=== PATIENT | female | born 1955 | race Caucasian/White ===

== ENCOUNTER 2020-09-05 12:54 | Outpatient (REF) | payer MEDICARE, SELFPAY ==
[2020-09-09 22:36] LABS: Fecal Fat Qualitative NORMAL (NORMAL)
[2020-09-11 02:03] LABS: Pancreatic Elastase-1 >500 mcg/g
== END 2020-09-05 12:55 | disposition home or self-care (01) ==
LOC: HO.LNP 12:54
PROVIDERS: Visit Provider Internal Medicine Gastroenterology
DX: R19.4 Change in bowel habit (principal)
CPT/HCPCS: 82656; 82705

== ENCOUNTER 2020-09-19 07:35 | Day surgery (SDC) | payer MEDICARE, SELFPAY ==
[2020-09-12 10:26] VITALS: BMI 28.9
--- NOTE | 2020-09-18 08:17 | HO.ANESPROP2 ---
Documented by User: Kaley Joseph 09/18/20 08:17 HPI - Anesthesia Eval Consult details Narrative: 65yo F for Upper Endoscopy and Colonoscopy PMFSH Past Medical History Medical History (Updated 09/12/20 @ 10:23 by Tomasa Zimmer) Back pain Barretts esophagus Elevated cholesterol GERD (gastroesophageal reflux disease) HTN (hypertension) Hx of cancer of lung Hypothyroid Osteoporosis Surgical History Surgical History (Updated 09/12/20 @ 10:23 by Tomasa Zimmer) H/O colonoscopy History of esophagogastroduodenoscopy (EGD) History of lung surgery Hx of cholecystectomy Hx of hysterectomy Hx of thyroidectomy Social History Social History (Updated 09/12/20 @ 10:23 by Tomasa Zimmer) Patient Tobacco Use Status: Former Tobacco user Quit Date: 4 Tobacco use type: Cigarette Years Smoked: 35 Smoked in Last 30 Days: No Use of substances other than those prescribed or required for medical reasons: No Are you DNR?: No Advance Directives: No Advance Directives Information Provided: Yes Meds Allergies Allergy/AdvReac Type Severity Reaction Status Date / Time Sulfa (Sulfonamide Allergy Unknown Itching Verified 09/19/20 08:27 Antibiotics) Home Medications Medication Instructions Recorded Confirmed Last Taken Type amlodipine 5 mg tablet 5 mg PO DAILY 09/12/20 09/12/20 09/19/20 06:30 History levothyroxine 88 mcg tablet 88 mcg PO DAILY 09/12/20 09/12/20 09/19/20 06:30 History losartan 50 mg tablet 50 mg PO DAILY 09/12/20 09/12/20 Unknown History pantoprazole 40 mg tablet,delayed 40 mg PO DAILY 09/12/20 09/12/20 Unknown History release rosuvastatin 40 mg tablet 40 mg PO DAILY 09/12/20 09/12/20 Unknown History Exam Exam Date and Time: September 18, 2020 0817 Height,Weight and Vital Signs: Height 5 ft 2 in Weight 71.668 kg Assessment and Plan Assessment Anesthesia Assessment: Chart Reviewed Documented by User: Yessy Dennis 09/19/20 08:49 PMFSH Past Medical History Medical History (Updated 09/12/20 @ 10:23 by Tomasa Zimmer) Back pain Barretts esophagus Elevated cholesterol GERD (gastroesophageal reflux disease) HTN (hypertension) Hx of cancer of lung Hypothyroid Osteoporosis Surgical History Surgical History (Updated 09/12/20 @ 10:23 by Tomasa Zimmer) H/O colonoscopy History of esophagogastroduodenoscopy (EGD) History of lung surgery Hx of cholecystectomy Hx of hysterectomy Hx of thyroidectomy Social History Social History (Updated 09/12/20 @ 10:23 by Tomasa Zimmer) Patient Tobacco Use Status: Former Tobacco user Quit Date: 4 Tobacco use type: Cigarette Years Smoked: 35 Smoked in Last 30 Days: No Use of substances other than those prescribed or required for medical reasons: No Are you DNR?: No Advance Directives: No Advance Directives Information Provided: Yes Meds Allergies Allergy/AdvReac Type Severity Reaction Status Date / Time Sulfa (Sulfonamide Allergy Unknown Itching Verified 09/19/20 08:27 Antibiotics) Home Medications Medication Instructions Recorded Confirmed Last Taken Type amlodipine 5 mg tablet 5 mg PO DAILY 09/12/20 09/12/20 09/19/20 06:30 History levothyroxine 88 mcg tablet 88 mcg PO DAILY 09/12/20 09/12/20 09/19/20 06:30 History losartan 50 mg tablet 50 mg PO DAILY 09/12/20 09/12/20 Unknown History pantoprazole 40 mg tablet,delayed 40 mg PO DAILY 09/12/20 09/12/20 Unknown History release rosuvastatin 40 mg tablet 40 mg PO DAILY 09/12/20 09/12/20 Unknown History Exam Airway Mallampati Class: II TM Dist: >3cm Neck ROM: Full Denture: Upper
[2020-09-19 08:28] VITALS: BP 131/67; PULSE 75; RESP 16; TEMP 36.6; O2SAT 96; BMI 30.7
[2020-09-19] MEDS: Lactated Ringers 1,000 ML 100 ML IVCONT (08:37)
--- NOTE | 2020-09-19 08:47 | MHC.SHP ---
Pre-Procedural Eval Section A Date of Service: 09/19/20 The patient is an INPATIENT: No Changes since office visit: No Cold of Flu in the past 2 weeks, No New Medical Problems, No Changes in Medication and No Patient answered all questions The History & Physical has been completed within 30 days and I have reviewed it.: Yes Section B Chief Complaint: screening,barretts Allergies: Allergies Allergy/AdvReac Type Severity Reaction Status Date / Time Sulfa (Sulfonamide Allergy Unknown Itching Verified 09/19/20 08:27 Antibiotics) Plan I have reviewed the history and physical and performed a pertinent physical examination on my patient. No changes have occurred unless specified.
[2020-09-19 09:26] VITALS: BP 88/65; PULSE 57; RESP 14; TEMP 36.1; O2SAT 97
--- NOTE | 2020-09-19 09:29 | PM.OP ---
Brief Operative Note Date of Service: 09/19/20 Pre-op diagnosis: barretts, screening, cchange in bowels Post-op diagnosis: same Procedure: EGD/Colon Surgeon: Haile Madison Anesthesia: MAC Was an Post Tensioning Ironworker Helper used for this Procedure?: No Estimated blood loss (mL): 5 Pathology: other (see nurses notes) Condition: stable Disposition: PACU
[2020-09-19 09:42] VITALS: BP 106/58; PULSE 63; RESP 16; TEMP 36.1; O2SAT 96
--- NOTE | 2020-09-19 10:00 | OP_ITS ---
SURGEON: Haile Madison MD INDICATIONS: 1. Soto's esophagus. 2. Change in bowel habits and prior history of adenomatous colon polyps. PREOPERATIVE DIAGNOSIS: POSTOPERATIVE DIAGNOSIS: PROCEDURE PERFORMED: 1. Upper endoscopy with biopsy. 2. Colonoscopy to the terminal ileum with biopsy. ESTIMATED BLOOD LOSS: COMPLICATIONS: ANESTHESIA: ASSISTANTS: SPECIMENS: MEDICATIONS: Monitored anesthesia care. DESCRIPTION OF PROCEDURE: History and physical was performed. The risks and benefits of the procedure were explained to the patient. Informed consent was obtained. The patient was placed in the left lateral decubitus position. The Olympus video gastroscope was introduced into the esophagus, stomach, and duodenum. Examination was performed. The scope was removed, she was repositioned for colonoscopy. A digital rectal exam was performed and was found to be normal. The Olympus pediatric video colonoscope was introduced into the rectum and advanced into the cecum without difficulty. The cecum was identified by transillumination, palpation, and identification of ileocecal valve. Examination was performed and the scope was removed. She tolerated both procedures well and was returned to recovery area in stable condition. FINDINGS: UPPER ENDOSCOPY: Esophagus: The esophagus showed an irregular EG junction without evidence of esophagitis or raised lesions. Biopsies were obtained from the EG junction. Stomach: The stomach showed multiple benign-appearing gastric polyps, most measured less than 10 mm, were located in the fundus and body. Biopsies were obtained from two of these. Antral biopsies were also obtained. Duodenum: The bulb and second portion were normal. Biopsies were obtained to rule out malabsorption because of the patient's change in bowel habits. COLONOSCOPY: The terminal ileum was normal. This was biopsied, the visualized colonic mucosa was within normal limits without evidence of masses or ulcers. There was sigmoid diverticulosis with scattered diverticula throughout the remainder of the colon. At 50 cm, were two less than 5 mm polyps, which were removed with biopsy forceps. The mucosa appeared normal without evidence of colitis. Random sigmoid biopsies were obtained. Retroflexed examination was normal. The quality of the prep was good. Small internal hemorrhoids were seen on retroflexed examination. IMPRESSION: 1. Soto's esophagus. 2. Gastric polyps. 3. Diverticulosis. 4. Colon polyps. RECOMMENDATION: Follow up the biopsy results. MD BRANDEN John/KASIE / [id number]
== END 2020-09-19 10:00 | disposition home or self-care (01) ==
PROVIDERS: PCP Internal Medicine; Visit Provider Internal Medicine Gastroenterology
PROC: (CPT 45380; principal; 2020-09-19 09:20)
DX: Z12.11 Encounter for screening for malignant neoplasm of colon (principal); Z86.010 Personal history of colon polyps; K63.5 Polyp of colon; K57.30 Diverticulosis of large intestine without perforation or abscess without bleeding; K64.8 Other hemorrhoids; K22.70 Barrett's esophagus without dysplasia; K29.50 Unspecified chronic gastritis without bleeding; K31.7 Polyp of stomach and duodenum; I10 Essential (primary) hypertension; E78.5 Hyperlipidemia, unspecified; E03.9 Hypothyroidism, unspecified; M81.0 Age-related osteoporosis without current pathological fracture; Z79.899 Other long term (current) drug therapy; Z85.118 Personal history of other malignant neoplasm of bronchus and lung; Z87.891 Personal history of nicotine dependence
CPT/HCPCS: 45380; 43239; 88305; 88342